=== PATIENT | male | born 2000 | race Caucasian/White ===

== ENCOUNTER → 2019-06-19 | Outpatient (CLI) | payer OTHER ==
--- NOTE | 2019-06-19 19:21 | REP ---
Right great toe four views: Mineralization and joint spaces are normal. There is no fracture or dislocation. There are no calcifications or foreign bodies. Possible soft tissue edema. This should be confirmed clinically. Impression: Suspect soft tissue edema. This should be confirmed clinically. Otherwise, negative right great toe. Electronically Signed by Elvis Woodard MD 06/19/2019 07:11 P
== END ==
LOC: M LRY 18:19
PROVIDERS: ATTEND Physician Assistant
DX: M79.674 Pain in right toe(s) (principal)
CPT/HCPCS: 73660; G0463

== ENCOUNTER 2022-06-23 16:32 | Emergency (ER) | payer BC, OTHER ==
[~2022-06-23] VITALS: Ht 182.9 cm; Wt 106.8 kg
[2022-06-23] MEDS ORDERED: ACET-683 PO (17:04)
[2022-06-23 22:08] VITALS: BP 137/90
== END 2022-06-23 22:27 | disposition home or self-care (01) ==
LOC: M ED 16:32
DX: S93.601A Unspecified sprain of right foot, initial encounter (principal); W01.0XXA Fall on same level from slipping, tripping and stumbling without subsequent striking against object, initial encounter; F17.200 Nicotine dependence, unspecified, uncomplicated; F19.10 Other psychoactive substance abuse, uncomplicated; F10.10 Alcohol abuse, uncomplicated; Y92.009 Unspecified place in unspecified non-institutional (private) residence as the place of occurrence of the external cause; Z79.1 Long term (current) use of non-steroidal anti-inflammatories (NSAID)